=== PATIENT | female | born 1980 ===

== ENCOUNTER 2016-07-02 19:41 | Emergency (ER) | payer SELFPAY ==
[2016-07-02 19:41] VITALS: BMI 23.6
[2016-07-02 19:45] VITALS: BP 126/76; PULSE 76; RESP 16; TEMP 98.5; O2SAT 100
--- NOTE | 2016-07-02 20:08 | ED PDOC ---
HPI: General Adult Time Seen by Provider: 07/02/16 20:00 Chief Complaint (Nursing): Flu-like Symptoms Chief Complaint (Provider): Flu-like Symptoms History Per: Patient History/Exam Limitations: no limitations Onset/Duration Of Symptoms: Days (x2) Current Symptoms Are (Timing): Still Present Additional Complaint(s): 20:00 Carla Baez is a 36 year old fever that presents to the ED with a chief complaint of a fever that peaked at 100.0 degrees Fahrenheit, with an associated nonproductive cough, sneezing, congestion, and body aches that she has been experiencing for the past two days. Past Medical History Reviewed: Historical Data, Nursing Documentation, Vital Signs Vital Signs: Last Vital Signs Temp 98.5 F 07/02/16 19:43 Pulse 76 07/02/16 19:43 Resp 16 07/02/16 19:43 BP 126/76 07/02/16 19:43 Pulse Ox 100 07/02/16 20:15 - Medical History PMH: Arthritis (PSORIATIC), Gastritis, GERD - Family History Family History: States: Unknown Family Hx - Home Medications Home Medications: Ambulatory Orders Medication Instructions Recorded Acetaminophen [Tylenol 325mg tab] 325 mg PO PRN PRN 04/12/16 - Allergies Allergies/Adverse Reactions: Allergies Allergy/AdvReac Type Severity Reaction Status Date / Time No Known Allergies Allergy Verified 12/09/15 12:58 Review of Systems Constitutional: Positive for: Fever, Other (sneezing, diffuse myaligas) ENT: Positive for: Nose Congestion Respiratory: Positive for: Cough (nonproductive) Physical Exam - Reviewed Nursing Documentation Reviewed: Yes Vital Signs Reviewed: Yes - Physical Exam Appears: Positive for: Non-toxic, No Acute Distress Head Exam: Positive for: ATRAUMATIC, NORMOCEPHALIC Skin: Positive for: Normal Color, Warm ENT: Positive for: Nasal Congestion, Other (throat normal, ears normal). Negative for: Sinus Pain/Drainage (no sinus tenderness) Cardiovascular/Chest: Positive for: Regular Rate, Rhythm. Negative for: Murmur Respiratory: Positive for: Normal Breath Sounds. Negative for: Respiratory Distress Neurologic/Psych: Positive for: Alert, Oriented - ECG O2 Sat by Pulse Oximetry: 100 (RA) Pulse Ox Interpretation: Normal Medical Decision Making Medical Decision Makin:05 Initial Impression: Flu-Like Symptoms Initial Plan: * Flu Swab * Reevaluation * Flu (-) * stable appearing advised to take allergy OTC medication and rest with fluids. * stable VS and well appearing. Scribe Attestation: Documented by Carla Pink, acting as a scribe for Misty Bravo PA-C. Provider Scribe Attestation: All medical record entries made by the Scribe were at my direction and personally dictated by me. I have reviewed the chart and agree that the record accurately reflects my personal performance of the history, physical exam, medical decision making, and the department course for this patient. I have also personally directed, reviewed, and agree with the discharge instructions and disposition. Disposition - Clinical Impression Clinical Impression: Viral syndrome - Patient ED Disposition Is Patient to be Admitted: No Counseled Patient/Family Regarding: Studies Performed, Diagnosis, Need For Followup - Disposition Disposition: Routine/Home Disposition Time: 21:20 Condition: STABLE Instructions: Viral Syndrome (ED)
== END 2016-07-02 21:38 | disposition home or self-care (01) ==
LOC: H.ER 19:41
DX: B34.9 Viral infection, unspecified (principal); K21.9 Gastro-esophageal reflux disease without esophagitis

== ENCOUNTER 2016-08-10 20:24 | Emergency (ER) | payer SELFPAY ==
[2016-08-10 20:25] VITALS: BMI 23.6
[2016-08-10 20:57] VITALS: BP 130/94; PULSE 87; RESP 18; TEMP 98.1; O2SAT 100
[2016-08-10] MEDS ORDERED: DiphenhydrAMINE 50 mg/ml Inj IVP STA (21:22)
[2016-08-10] MEDS ORDERED: Lactated Ringer's 1,000 ML IV STA (21:22)
[2016-08-10 22:02] LABS: BASO % 0.6 % (0.0-2.0); EOS # 0.2 K/uL (0.0-0.7); EOS % 3.5 % (0.0-4.0); HEMATOCRIT 38.5 % (34.0-47.0); LYMPH # 1.6 K/uL (1.0-4.3); MEAN CELL VOLUME 88.6 fl (81.0-99.0); MEAN CORPUSCULAR HEMOGLOBIN 29.2 pg (27.0-31.0); MEAN CORPUSCULAR HGB CONC 32.9 g/dL (33.0-37.0); MEAN PLATELET VOLUME 8.5 fl (7.2-11.7); MONO # 0.5 K/uL (0.0-0.8); MONO % 6.3 % (0.0-10.0); NEUT # 4.8 K/uL (1.8-7.0); NEUT % 67.6 % (50.0-75.0); NRBC % 0.1 % (0.0-0.0); RED CELL DISTRIBUTION WIDTH 13.6 % (11.5-14.5); WHITE BLOOD COUNT 7.1 K/uL (4.8-10.8)
[2016-08-10 22:30] LABS: ALB/GLOB RATIO 1.4 (1.0-2.1); ALKALINE PHOSPHATASE 74 U/L (38-126); ALT/SGPT 30 U/L (9-52); AST/SGOT 26 U/L (14-36); BILIRUBIN,TOTAL 0.2 mg/dl (0.2-1.3); BLOOD UREA NITROGEN 14 mg/dl (7-17); CALCIUM 9.4 mg/dL (8.4-10.2); CARBON DIOXIDE 27 mmol/L (22-30); CHLORIDE 103 mmol/L (98-107); GFR AFRICAN-AMERICAN > 60; GLUCOSE,RANDOM 85 mg/dL (65-105); MAGNESIUM 2.3 MG/DL (1.6-2.3); PHOSPHOROUS 4.1 mg/dl (2.5-4.5); POTASSIUM 4.1 MMOL/L (3.6-5.0); SODIUM 140 mmol/l (132-148); TOTAL PROTEIN 7.2 G/DL (6.3-8.2)
--- NOTE | 2016-08-10 22:36 | ED PDOC ---
HPI: Headache Time Seen by Provider: 08/10/16 21:02 Chief Complaint (Nursing): Headache Chief Complaint (Provider): Headache History Per: Patient History/Exam Limitations: no limitations Onset/Duration Of Symptoms: Days (4 days) Current Symptoms Are (Timing): Still Present Additional Complaint(s): Carla Lennon, a 36 year old female, present to the ED with a headache.The patient states that the headache is diffuse on the anterior radiating to the sides. She reports that she has been feeling constant pressure for 4 days and that she has taken tylenol and motrin with no relief. The patients reports she has had some associated nausea but no vomiting. Denies neck pain and fever. The patient also states that she has had lower back pain for about a week. Denies focal weakness, blurry vision, injury. Patient also reports that she has been under increased stress recently having to take care ofher 5 month old baby and upcoming events for her older children. - Risk Factors SAH Risk Factors: Nest Degree Relative(s) W/SAH, Polycystic Kidney Disease, Marfan's Syndrome, Sudden Onset Of Pain, Worst Headache Of Life Past Medical History Vital Signs: Last Vital Signs Temp 98.1 F 08/10/16 20:53 Pulse 87 08/10/16 20:53 Resp 18 08/10/16 20:53 BP 130/94 H 08/10/16 20:53 Pulse Ox 100 08/10/16 20:53 - Medical History PMH: Arthritis (PSORIATIC), Gastritis, GERD Other PMH: Psoriasis - Surgical History Surgical History: No Surg Hx - Family History Family History: States: Other Other Family History: Migraines run in alot of women in her family but she has never been diagnosed. - Social History Current smoker - smoking cessation education provided: Yes Alcohol: None - Home Medications Home Medications: Ambulatory Orders Medication Instructions Recorded Acetaminophen [Tylenol 325mg tab] 325 mg PO PRN PRN 04/12/16 Acetaminophen/Butalbital/Caf 1 tab PO TID PRN #15 tab 08/10/16 [Fioricet] Naproxen [Naprosyn] 1 tab PO BID PRN #60 tab 08/10/16 - Allergies Allergies/Adverse Reactions: Allergies Allergy/AdvReac Type Severity Reaction Status Date / Time No Known Allergies Allergy Verified 12/09/15 12:58 Review of Systems ROS Statement: Except As Marked, All Systems Reviewed And Found Negative Constitutional: Negative for: Fever Gastrointestinal: Positive for: Nausea. Negative for: Vomiting Musculoskeletal: Positive for: Back Pain (Lower back pain). Negative for: Neck Pain Neurological: Positive for: Other (Denies focal weakness and blurry vision.). Negative for: Weakness Physical Exam - Reviewed Nursing Documentation Reviewed: Yes Vital Signs Reviewed: Yes - Physical Exam Appears: Positive for: Non-toxic (Mild painful distress.), No Acute Distress Head Exam: Positive for: ATRAUMATIC, NORMOCEPHALIC Skin: Positive for: Normal Color (Multiple psoriatic lesion on extremities and face.), Warm, Dry ENT: Positive for: Normal ENT Inspection Neck: Positive for: Painless ROM, Supple Cardiovascular/Chest: Positive for: Regular Rate, Rhythm, Chest Non Tender. Negative for: Tachycardia Respiratory: Positive for: Normal Breath Sounds. Negative for: Wheezing, Respiratory Distress Gastrointestinal/Abdominal: Positive for: Normal Exam, Bowel Sounds, Soft. Negative for: Tenderness, Guarding, Rebound Back: Positive for: Normal Inspection Extremity: Positive for: Normal ROM. 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 Negative for: Motor/Sensory Deficits , Aphasia - Laboratory Results Result Diagrams: 08/10/16 21:48 08/10/16 21:48 - ECG O2 Sat by Pulse Oximetry: 100 (RA) Pulse Ox Interpretation: Normal Medical Decision Making Medical Decision Makin:02 Initial Impression: 36 year old female presenting with headache Differentials: Tension Headache, Migraine headache, electrolyte abnormality, Stress, Dehydration Initial Plan: * Comp Metabolic Panel * Magnesium * Phosphorous * Thyroid stimulanting hormone * Upreg * Udip * CBC * Benadryl 25mg IVP * Lactated ringers 1000ml IV 1000mls/hr * Phernergan INJ 25mg IVPB * Toradol 15mg IV * Reevaluation 2300 On reevaluation pt feeling better. Labs unremarkable. Scribe Attestation Documented by Fidelina Lopez acting as a scribe for Kaye Mejias MD. Provider Attestation: All medical record entries made by the Scribe were at my direction and personally dictated by me. I have reviewed the chart and agree that the record accurately reflects my personal performance of the history, physical exam, medical decision making, and the department course for this patient. I have also personally directed, reviewed, and agree with the discharge instructions and disposition. Disposition - Clinical Impression Clinical Impression: Severe headache Counseled Patient/Family Regarding: Studies Performed, Diagnosis, Need For Followup, Rx Given - Disposition Referrals: Shaik Horne MD [Medical Doctor] - Reyes Oakes MD [Staff Provider] - (FOLLOW UP IN 5-7 DAYS) Disposition: Routine/Home Disposition Time: 23:00 Condition: IMPROVED Prescriptions: Acetaminophen/Butalbital/Caf [Fioricet] 1 tab PO TID PRN #15 tab PRN Reason: severe headache Naproxen [Naprosyn] 1 tab PO BID PRN #60 tab PRN Reason: Headache Instructions: Migraine Headache (ED), Acute Headache (ED)
[2016-08-10 23:02] LABS: THYROID STIMULATING HORMONE 0.92 mIU/ML (0.46-4.68)
== END 2016-08-10 23:43 | disposition home or self-care (01) ==
LOC: H.ER 20:24
DX: R51 Headache (principal); R11.0 Nausea; K21.9 Gastro-esophageal reflux disease without esophagitis
CPT/HCPCS: 80053; 83735; 84100; 84443; 85025; 96365; 99285; J1885; J2550; J7120

== ENCOUNTER 2017-02-16 19:42 | Emergency (ER) | payer MEDICAID ==
[2017-02-16 19:42] VITALS: BMI 23.6
[2017-02-16 19:54] VITALS: BP 128/87; PULSE 88; RESP 18; TEMP 97.7; O2SAT 100
--- NOTE | 2017-02-16 20:07 | ED PDOC ---
HPI: CCC, URI, Sore Throat Time Seen by Provider: 02/16/17 20:02 Chief Complaint (Nursing): Cough, Cold, Congestion Chief Complaint (Provider): Cough History Per: Patient History/Exam Limitations: no limitations Have you had recent travel within the past 21 days to any of the following countries: [place], [place], [place] or [place]?: No Onset/Duration Of Symptoms: Other (x2 weeks) Current Symptoms Are (Timing): Still Present Location Of Pain: Other (eyes) Sick Contacts (Context): Family Member(s) (daughter) Associated Symptoms: Cough, Nasal Congestion. denies: Fever, Chills, Sore Throat, Vomiting, Diarrhea Ear Symptoms: Bilateral: None Severity: None Additional Complaint(s): 36 year old female presents to the ED complaining of cough and congestion x2 weeks. The patient states that her cough is productive of green and [place] phlegm. She states that she has been taking dayquil and home remedies for relief but they have offered her no relief. The patient further states that she has also noticed some eye pain associated with mild discharge. Of note: Patient states that she had a fever tmax of 101 last week but that has since resolved PMD: Shaik Hernández Past Medical History Reviewed: Historical Data, Nursing Documentation, Vital Signs Vital Signs: Last Vital Signs Temp 97.7 F 02/16/17 19:51 Pulse 88 02/16/17 19:51 Resp 18 02/16/17 19:51 BP 128/87 02/16/17 19:51 Pulse Ox 100 02/16/17 20:17 - Medical History PMH: Arthritis (PSORIATIC), Gastritis, GERD Other PMH: psoriasis - Family History Family History: States: Unknown Family Hx - Home Medications Home Medications: Ambulatory Orders Medication Instructions Recorded Acetaminophen [Tylenol 325mg tab] 325 mg PO PRN PRN 04/12/16 Acetaminophen/Butalbital/Caf 1 tab PO TID PRN #15 tab 08/10/16 [Fioricet] Naproxen [Naprosyn] 1 tab PO BID PRN #60 tab 08/10/16 Polymyxin/Trimethoprim Sulfate 1 drop OU 5XD #1 bottle 02/16/17 [Polytrim Ophth Soln] Promethazine/Codeine 5 ml PO Q12 PRN #100 ml 02/16/17 [Codeine/Promethazine 10 MG/5 Ml-6.25 MG/5 Ml] Pseudoephedrine [Sudafed Tab] 60 mg PO Q6 PRN #24 tab 02/16/17 - Allergies Allergies/Adverse Reactions: Allergies Allergy/AdvReac Type Severity Reaction Status Date / Time No Known Allergies Allergy Verified 02/16/17 19:54 Review of Systems ROS Statement: Except As Marked, All Systems Reviewed And Found Negative Constitutional: Positive for: Fever (tmax 101; resolved) Eyes: Positive for: Pain (b/l) Physical Exam - Reviewed Vital Signs Reviewed: Yes - Physical Exam Appears: Positive for: Non-toxic Head Exam: Positive for: NORMAL INSPECTION Skin: Positive for: Normal Color, Warm, Dry. Negative for: Rash Eye Exam: Positive for: Normal appearance, EOMI, PERRL ENT: Positive for: Nasal Congestion. Negative for: Pharyngeal Erythema, Tonsillar Exudate, Tonsillar Swelling Cardiovascular/Chest: Positive for: Regular Rate, Rhythm, Chest Non Tender. Negative for: Tachycardia Respiratory: Positive for: Normal Breath Sounds (lungs clear to auscultation). Negative for: Respiratory Distress Extremity: Positive for: Normal ROM, Other (moderate eczema noted on b/l dorsum of hands). Negative for: Deformity, Swelling Neurologic/Psych: Positive for: Alert, Oriented - ECG O2 Sat by Pulse Oximetry: 100 (RA) Pulse Ox Interpretation: Normal Medical Decision Making Medical Decision Makin Initial Impression 36 y/o female presenting with cough Initial Plan: * Reevaluation Documented by Fidelina Lopez acting as a scribe for Fred Crawley PA-C. All medical record entries made by the Scribe were at my direction and personally dictated by me. I have reviewed the chart and agree that the record accurately reflects my personal performance of the history, physical exam, medical decision making, and the department course for this patient. I have also personally directed, reviewed, and agree with the discharge instructions and disposition. Disposition - Clinical Impression Clinical Impression: Upper respiratory infection - Patient ED Disposition Is Patient to be Admitted: No - Disposition Disposition: Routine/Home Disposition Time: 20:33 Condition: FAIR Prescriptions: Polymyxin/Trimethoprim Sulfate [Polytrim Ophth Soln] 1 drop OU 5XD #1 bottle Promethazine/Codeine [Codeine/Promethazine 10 MG/5 Ml-6.25 MG/5 Ml] 5 ml PO Q12 PRN #100 ml PRN Reason: Cough Pseudoephedrine [Sudafed Tab] 60 mg PO Q6 PRN #24 tab PRN Reason: Nasal Congestion Instructions: Upper Respiratory Infection (ED), Conjunctivitis (ED) Forms: [facility] (Estonian), [facility] ED School/Work Excuse
== END 2017-02-16 20:33 | disposition home or self-care (01) ==
LOC: H.ER 19:42
DX: J06.9 Acute upper respiratory infection, unspecified (principal); K21.9 Gastro-esophageal reflux disease without esophagitis

== ENCOUNTER 2018-02-21 18:58 | Emergency (ER) | payer MEDICAID, OTHER ==
[2018-02-21 18:59] VITALS: BMI 23.6
--- NOTE | 2018-02-21 20:26 | ED PDOC ---
HPI: Chest Pain Time Seen by Provider: 02/21/18 19:03 Chief Complaint (Nursing): Palpitations Chief Complaint (Provider): Palpitations History Per: Patient History/Exam Limitations: no limitations Onset/Duration Of Symptoms: Days Current Symptoms Are (Timing): Still Present Additional Complaint(s): 37 y/o female with a PMHx of Cirrhosis and Arthritis presents to the ED for evaluation of intermittent left-sided chest pain with palpitations, onset three days ago. Patient describes pain as a "shocking running from the right to the left". Patient states symptoms are not related to movement. Patient reports of experiencing palpitation before but states current palpitations feels different. Otherwise, patient denies any history of thyroid issues and caffeine overuse. PMD: Shaik Horne Past Medical History Reviewed: Historical Data, Nursing Documentation, Vital Signs Vital Signs: Last Vital Signs Temp 98.4 F 02/21/18 19:04 Pulse 100 H 02/21/18 19:04 Resp 98 H 02/21/18 19:04 BP 140/78 02/21/18 19:04 Pulse Ox 98 02/21/18 19:04 - Medical History PMH: Arthritis (PSORIATIC), Gastritis, GERD Other PMH: Liver Cirrhosis - Surgical History Surgical History: No Surg Hx - Family History Family History: States: Unknown Family Hx - Social History Current smoker - smoking cessation education provided: No Alcohol: None Drugs: Denies - Home Medications Home Medications: Ambulatory Orders Medication Instructions Recorded Acetaminophen [Tylenol 325mg tab] 325 mg PO PRN PRN 04/12/16 Acetaminophen/Butalbital/Caf 1 tab PO TID PRN #15 tab 08/10/16 [Fioricet] RX: Naproxen [Naprosyn] 1 tab PO BID PRN #60 tab 08/10/16 Polymyxin/Trimethoprim Sulfate 1 drop OU 5XD #1 bottle 02/16/17 [Polytrim Ophth Soln] Promethazine/Codeine 5 ml PO Q12 PRN #100 ml 02/16/17 [Codeine/Promethazine 10 MG/5 Ml-6.25 MG/5 Ml] RX: Pseudoephedrine [Sudafed Tab] 60 mg PO Q6 PRN #24 tab 02/16/17 - Allergies Allergies/Adverse Reactions: Allergies Allergy/AdvReac Type Severity Reaction Status Date / Time No Known Allergies Allergy Verified 02/16/17 19:54 BELLA Risk Score for UA/NSTEMI - BELLA Risk Score Age > 64: NO 3 or more CAD Risk Factors: NO Known CAD (Stenosis greater than 50%): NO Aspirin use in past 7 days: NO Severe Angina: NO EKG ST changes greater than 0.5mm: NO Positive Cardiac Marker: NO BELLA Score: 0 Risk %: 5% Wells Criteria for PE - Wells Criteria for Pulmonary Embolism Clinical Signs and Symptoms of DVT: No P.E is #1 Diagnosis, or Equally Likely: No Heart Rate >100: No Immobilization at least 3 days;Surgery previous 4 weeks: No Previous, objectively diagnosed PE or DVT: No Hemoptysis: No Malignancy w/treatment within 6 months, or palliative: No Total Score: 0 Review of Systems ROS Statement: Except As Marked, All Systems Reviewed And Found Negative Cardiovascular: Positive for: Chest Pain, Palpitations Physical Exam - Reviewed Nursing Documentation Reviewed: Yes Vital Signs Reviewed: Yes - Physical Exam Appears: Positive for: No Acute Distress Head Exam: Positive for: ATRAUMATIC, NORMOCEPHALIC Skin: Positive for: Normal Color, Warm, Dry Eye Exam: Positive for: Normal appearance, EOMI, PERRL ENT: Positive for: Normal ENT Inspection Neck: Positive for: Normal, Painless ROM, Supple Cardiovascular/Chest: Positive for: Regular Rate, Rhythm. Negative for: Murmur Respiratory: Positive for: Normal Breath Sounds. Negative for: Respiratory Distress Gastrointestinal/Abdominal: Positive for: Normal Exam, Soft. Negative for: Tenderness Back: Positive for: Normal Inspection. Negative for: L CVA Tenderness, R CVA Tenderness, Vertebral Tenderness Extremity: Positive for: Normal ROM. Negative for: Pedal Edema, Deformity, Swelling Neurologic/Psych: Positive for: Alert, Oriented. Negative for: Motor/Sensory Deficits - Laboratory Results Result Diagrams: 02/21/18 20:37 02/21/18 20:37 - ECG O2 Sat by Pulse Oximetry: 98 (RA) Pulse Ox Interpretation: Normal Medical Decision Making Medical Decision Making: Time: 2017 Impression: palpitaionts, Rule out thyroid and cardiac ideology Plan: -- CMP -- T4 -- TSH -- Troponin I -- CBC with Differentials -- CXR Two Views -- POC Urine Time: 2219 -- Thyroid study results are normal. trop neg, ekg nsr. Labs demonstrate no clinically significant abnormalities. CXR as read by provider is negative. pt reevalkuated, on the cell phone in no distress. breathing comfortably in no pain/palpitaions resolved. i explained that she needs to follow up with pcp/refractory repairer for further studies. pt understands return precautions Scribe Attestation: Documented by Ondina Berger, acting as a scribe for Philippe Norman MD. Provider Scribe Attestation: All medical record entries made by the Scribe were at my direction and personally dictated by me. I have reviewed the chart and agree that the record accurately reflects my personal performance of the history, physical exam, medical decision making, and the department course for this patient. I have also personally directed, reviewed, and agree with the discharge instructions and disposition. Disposition - Clinical Impression Clinical Impression: Palpitations - Patient ED Disposition Is Patient to be Admitted: No Counseled Patient/Family Regarding: Studies Performed, Diagnosis, Need For Follo wup - Disposition Referrals: Minesh Nelson MD [Staff Provider] - Disposition: Routine/Home Disposition Time: 22:40 Condition: IMPROVED Additional Instructions: follow up with your primary doctor tomorrow you need to see a refractory repairer this week return to the ED with any worsening or concerning symptoms reduce the amount of caffeine intake Instructions: Palpitations (DC) Forms: [employer] [facility] (Peruvian)
[2018-02-21 20:48] LABS: BASO % 0.3 % (0.0-2.0); EOS # 0.3 K/uL (0.0-0.7); EOS % 3.2 % (0.0-4.0); HEMOGLOBIN 12.6 g/dL (12.0-16.0); LYMPH # 1.4 K/uL (1.0-4.3); LYMPH % 15.5 % (20.0-40.0); MEAN CORPUSCULAR HEMOGLOBIN 29.5 pg (27.0-31.0); MEAN CORPUSCULAR HGB CONC 33.5 g/dL (33.0-37.0); MONO # 0.7 K/uL (0.0-0.8); MONO % 7.1 % (0.0-10.0); NEUT # 6.9 K/uL (1.8-7.0); NEUT % 73.9 % (50.0-75.0); RBC 4.28 Mil/uL (3.80-5.20); RED CELL DISTRIBUTION WIDTH 13.8 % (11.5-14.5); WHITE BLOOD COUNT 9.3 K/uL (4.8-10.8)
[2018-02-21 20:58] LABS: ALB/GLOB RATIO 1.4 (1.0-2.1); ALT/SGPT 31 U/L (9-52); AST/SGOT 27 U/L (14-36); BLOOD UREA NITROGEN 13 mg/dl (7-17); CALCIUM 9.1 mg/dL (8.4-10.2); GFR NON-AFRICAN AMERICAN > 60
[2018-02-21 21:17] LABS: T4 6.28 ug/dl (5.5-11.0)
[2018-02-21 22:47] VITALS: BP 128/81; PULSE 72; RESP 16; TEMP 98
[2018-02-22 02:26] VITALS: O2SAT 98
--- NOTE | 2018-02-22 08:38 | RAD ---
Date of service: 02/21/2018 HISTORY: chest palpitations COMPARISON: No prior. TECHNIQUE: Chest PA and lateral FINDINGS: LUNGS: No active pulmonary disease. PLEURA: No significant pleural effusion identified. No pneumothorax apparent. CARDIOVASCULAR: No aortic atherosclerotic calcification present. Normal cardiac size. No pulmonary vascular congestion. OSSEOUS STRUCTURES: No significant abnormalities. VISUALIZED UPPER ABDOMEN: Normal. OTHER FINDINGS: None. IMPRESSION: No active disease.
== END 2018-02-21 22:47 | disposition home or self-care (01) ==
LOC: H.ER 18:58
DX: R00.2 Palpitations (principal); K74.60 Unspecified cirrhosis of liver; K21.9 Gastro-esophageal reflux disease without esophagitis; L40.9 Psoriasis, unspecified

== ENCOUNTER 2018-03-10 19:33 | Emergency (ER) | payer OTHER ==
[2018-03-10 19:50] VITALS: BMI 27.3
--- NOTE | 2018-03-10 20:23 | ED PDOC ---
HPI: Abdomen Time Seen by Provider: 03/10/18 20:00 Chief Complaint (Nursing): Abdominal Pain Chief Complaint (Provider): Abdominal Pain History Per: Patient History/Exam Limitations: no limitations Onset/Duration Of Symptoms: Days (3x days) Current Symptoms Are (Timing): Still Present Location Of Pain/Discomfort: Epigastric Associated Symptoms: Nausea, Vomiting Additional Complaint(s): 37 year old female with a past medical history of GERD presents to the ED for an evaluation of abdominal pain associated with multiple episodes of vomiting after eater spicy food just prior to arrival. Patient reports that recently she has been experiencing difficulty breathing after eating something spicy, and has had to use her daughter's nebulizer for relief. Otherwise, patient has no other complaints. PMD: Shaik Coleen VAUGHAN Past Medical History Reviewed: Historical Data, Nursing Documentation, Vital Signs Vital Signs: Last Vital Signs Temp 97.8 F 03/10/18 19:50 Pulse 86 03/10/18 19:50 Resp 16 03/10/18 19:50 BP 119/77 03/10/18 19:50 Pulse Ox 100 03/10/18 19:50 JOSE Report Viewed: Yes - Medical History PMH: Arthritis (PSORIATIC), Gastritis, GERD - Family History Family History: States: No Known Family Hx - Living Arrangements Living Arrangements: With Family - Social History Current smoker - smoking cessation education provided: Yes Alcohol: None Drugs: Denies - Home Medications Home Medications: Ambulatory Orders Medication Instructions Recorded Acetaminophen [Tylenol 325mg tab] 325 mg PO PRN PRN 04/12/16 Acetaminophen/Butalbital/Caf 1 tab PO TID PRN #15 tab 08/10/16 [Fioricet] Naproxen [Naprosyn] 1 tab PO BID PRN #60 tab 08/10/16 Polymyxin/Trimethoprim Sulfate 1 drop OU 5XD #1 bottle 02/16/17 [Polytrim Ophth Soln] Promethazine/Codeine 5 ml PO Q12 PRN #100 ml 02/16/17 [Codeine/Promethazine 10 MG/5 Ml-6.25 MG/5 Ml] Pseudoephedrine [Sudafed Tab] 60 mg PO Q6 PRN #24 tab 02/16/17 Famotidine [Pepcid] 20 mg PO BID PRN #10 tab 03/10/18 Omeprazole Magnesium [Prilosec Otc] 20 mg PO DAILY #14 tablet. 03/10/18 - Allergies Allergies/Adverse Reactions: Allergies Allergy/AdvReac Type Severity Reaction Status Date / Time No Known Allergies Allergy Verified 03/10/18 19:49 Review of Systems ROS Statement: Except As Marked, All Systems Reviewed And Found Negative Respiratory: Positive for: Shortness of Breath Gastrointestinal: Positive for: Vomiting, Abdominal Pain Physical Exam - Reviewed Nursing Documentation Reviewed: Yes Vital Signs Reviewed: Yes - Physical Exam Appears: Positive for: Well, Non-toxic, No Acute Distress Head Exam: Positive for: ATRAUMATIC, NORMOCEPHALIC Skin: Positive for: Normal Color, Warm, Dry Cardiovascular/Chest: Positive for: Regular Rate, Rhythm Respiratory: Positive for: Normal Breath Sounds. Negative for: Respiratory Distress Gastrointestinal/Abdominal: Positive for: Soft, Tenderness (mild epigastric discomfort) Neurologic/Psych: Positive for: Alert, Oriented (3x) - ECG O2 Sat by Pulse Oximetry: 100 (RA) Pulse Ox Interpretation: Normal - Progress ED Course And Treament: cxr: nad pepcid 20 mg x 1 dose Medical Decision Making Medical Decision Makin:00 Initial impression: 37 year old female with abdominal pain, vomiting, and difficulty breathing after eating spicy food. Initial plan: * XRay chest 2 views * EKG * pepcid 20 mg PO * reevaluation Scribe Attestation: Documented Иван Cabrera, acting as a scribe for Fred Crawley PA-C. Provider Scribe Attestation: All medical record entries made by the Scribe were at my direction and personally dictated by me. I have reviewed the chart and agree that the record accurately reflects my personal performance of the history, physical exam, medical decision making, and the department course for this patient. I have also personally directed, reviewed, and agree with the discharge instructions and disposition. Disposition - Clinical Impression Clinical Impression: Esophageal reflux - Patient ED Disposition Is Patient to be Admitted: No - Disposition Disposition: Routine/Home Disposition Time: 21:11 Condition: FAIR Prescriptions: Famotidine [Pepcid] 20 mg PO BID PRN #10 tab PRN Reason: Pain, Moderate (4-7) Omeprazole Magnesium [Prilosec Otc] 20 mg PO DAILY #14 tablet.dr Instructions: Acid Reflux (Gastroesophageal Reflux Disease) in Adults, Ulcer and Gastritis Diet Forms: [facility] ED School/Work Excuse
[2018-03-10 21:28] VITALS: BP 122/70; PULSE 78; RESP 18; TEMP 98; O2SAT 98
[2018-03-10] MEDS ORDERED: Alum-Mag Hydrox-Simethicone Susp (30 mL) PO ONE (21:36)
--- NOTE | 2018-03-11 09:12 | RAD ---
Date of service: 03/10/2018 HISTORY: SOB COMPARISON: Chest radiograph dated 02/21/2018 TECHNIQUE: Chest PA and lateral FINDINGS: LUNGS: No active pulmonary disease. PLEURA: No significant pleural effusion identified. No pneumothorax apparent. CARDIOVASCULAR: No aortic atherosclerotic calcification present. Normal cardiac size. No pulmonary vascular congestion. OSSEOUS STRUCTURES: No significant abnormalities. VISUALIZED UPPER ABDOMEN: Normal. OTHER FINDINGS: None. IMPRESSION: No active disease.
--- NOTE | 2018-03-11 13:08 | CARD ---
APPROVED REPORT Date of service: 03/10/2018 EKG Measurement Heart [id number] <Conclusion> Normal sinus rhythm Normal ECG
== END 2018-03-10 21:27 | disposition home or self-care (01) ==
LOC: H.ER 19:33
DX: K21.9 Gastro-esophageal reflux disease without esophagitis (principal)